=== PATIENT | female | born 2000 | race Two or more races ===

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

== ENCOUNTER 2022-12-03 08:56 | Emergency (ER) | payer OTHER ==
[~2022-12-03] VITALS: Ht 154.9 cm; Wt 62.6 kg
== END 2022-12-03 11:46 | disposition home or self-care (01) ==
LOC: ER 08:56
DX: R53.81 Other malaise (principal); J02.8 Acute pharyngitis due to other specified organisms; B97.89 Other viral agents as the cause of diseases classified elsewhere; Z20.822 Contact with and (suspected) exposure to COVID-19